=== PATIENT | female | born 1940 | race Caucasian/White ===

== ENCOUNTER 2017-07-12 17:16 | Emergency (ER) | payer MEDICARE ==
[~2017-07-12] VITALS: Ht 124.5 cm; Wt 68.0 kg
[~2017-07-12 17:16] MED LIST: ASPIRIN EC325 MG PO; ASPIRIN EC81 MG PO; CALCIUM 500 +1 EAC3 PO; CALCIUM500 MG PO; CALCIUM600 MG PO; GLUCOSAMINE &1 EAC1 PO; GLUCOSAMINE-MS1 EAC2 PO; HYDROMORPHONE HC4 MG PO; IRON325 M1 PO; MECLIZINE HCL25 MG PO; MIRALAX17 GM PO; MULTIVITAMINS1 EAC7 PO; NAPROXEN SODIU220 MG PO; NORCO 5-325 TA1 EACH PO; OMEGA 3 1,0001 EACH PO; OMEGA 3 FISH O1 EACH PO; PROAIR HFA8.5 GM INH; VITAMIN C1000 MG PO; VITAMIN C500 M1 PO; VITAMIN D350000 UNIT PO; XARELTO10 MG PO; [UNRECOGNIZED DRUG - OTHER] PO
[2017-07-12] MEDS ORDERED: PROCTOFOAM15 GM TOP (17:45)
== END 2017-07-12 17:50 | disposition home or self-care (01) ==
LOC: ED 17:16
DX: K64.9 Unspecified hemorrhoids (principal); M06.9 Rheumatoid arthritis, unspecified; Z88.5 Allergy status to narcotic agent; Z90.49 Acquired absence of other specified parts of digestive tract; Z90.710 Acquired absence of both cervix and uterus; Z98.890 Other specified postprocedural states; Z79.82 Long term (current) use of aspirin; Z79.899 Other long term (current) drug therapy
CPT/HCPCS: 99283

== ENCOUNTER 2017-07-17 07:24 | Day surgery (SDC) | payer MEDICARE ==
[~2017-07-17] VITALS: Ht 124.5 cm; Wt 68.0 kg
[~2017-07-17 07:24] MED LIST changes: +PROCTOFOAM15 GM TOP
[2017-07-17] MEDS ORDERED: SIMVASTATIN10 MG PO (08:08)
[2017-07-17] MEDS ORDERED: HYDROCORTISONE30 G1 PR (08:08)
--- NOTE | 2017-07-17 11:16 | NUR ---
07/17/17 1116 Nasra Magana 1107- PT ARRIVED TO PACU, AWKE AND MAINTAINING OWN AIRWAY. PT WAS ANSWERING QUESTIONS. VSS. PT O2 SAT 100%, O2 REMOVED.
--- NOTE | 2017-07-17 14:30 | OR ---
[facility] [address], [place] [address] Signed DATE OF PROCEDURE: 07/17/17 PREOPERATIVE DIAGNOSIS: Thrombosed right external hemorrhoid (3 o'clock). POSTOPERATIVE DIAGNOSIS: Thrombosed right external hemorrhoid (3 o'clock). PROCEDURE: Excision thrombosed external hemorrhoid x1. ESTIMATED BLOOD LOSS: None. INDICATIONS Yolanda is a 76-year-old female, who I have known for several years. She is known to have some internal hemorrhoid tissue from her previous colonoscopy along with an internal anal skin tag. She had woke up a few days prior to coming to my office with a large lump on the right side of her anus. She said it was extremely painful. She had been to her primary care provider. She was diagnosed with a thrombosed external hemorrhoid. She was given hydrocortisone cream and asked to see me in follow-up. She told me in the office it was no better and it was still quite painful. With our nurse in the room, we examined the anus and she had a [id number] thrombosed external hemorrhoid at the 3 o'clock position. It was a good 15 mm in diameter. I explained to Yolanda it was a little bit large for us to do in the office, plus her knees are quite bad and it was hard for her to be on our exam table. I gave her a booklet on hemorrhoids and we looked that very carefully. I circled the sections on the thrombosed external hemorrhoid a nd explained to her that a simple incision and drainage has a high recurrence rate. It is much better to excise the thrombosed hemorrhoid completely. Of course, we will leave the wound open to heal in secondarily. I also reviewed with her the concept of Benefiber in her diet to keep the stools soft after the hemorrhoid surgery. I also wrote down Balneol lotion that she can use around the anal skin immediately after the surgery and in the future as needed for comfort. She understands the surgery quite well. There is risk including but not limited to bleeding, infection, scarring, change in contour of the skin and recurrent hemorrhoids. She had expressed understanding and wished to proceed. PROCEDURE NOTE Yolanda had a saddle block placed by our nurse associate professor of archaeology, after which she was taken into our operating room and placed in a prone karine-knife position with appropriate padding and monitoring. She was given light IV sedation for her comfort. She was then prepped and draped in the usual sterile fashion. She was given preoperative antibiotics. After this, it was quite easy to identify the thrombosed hemorrhoid. It was just starting to break through the surface of the skin. We went ahead and excised the hemorrhoid carefully with electrocautery making sure to stay above her sphincter muscles. She also had a tiny anal skin tag in the posterior midline and we removed it with the help of electrocautery. We then injected local anesthetic on the right side of her anus for a Electronically Signed By: ALEXANDREA LOPEZ MD 07/17/17 1430 PATIENT NAME: YOLANDA MADRIGAL OPERATIVE REPORT DATE OF : 38 PHYSICIAN: ALEXANDREA LOPEZ MD REPORT #: [id number] REPORT IS CONFIDENTIAL AND NOT TO BE RELEASED WITHOUT AUTHORIZATION [address] [address] Signed field block. After this, Yolanda was rotated supine onto her hospital bed and taken into recovery room in stable condition. MD KIMBERLEE De La Cruz/Modl /[id number] cc: Dr. Jones Butler Electronically Signed By: ALEXANDREA LOPEZ MD 07/17/17 1430 PATIENT NAME: KAITLINYOLANDA Nava OPERATIVE REPORT DATE OF : 38 PHYSICIAN: ALEXANDREA LOPEZ MD REPORT #: [id number] REPORT IS CONFIDENTIAL AND NOT TO BE RELEASED WITHOUT AUTHORIZATION
--- NOTE | 2017-07-17 18:36 | EKG ---
[facility] [address] [facility] [place] [address] Signed Normal sinus rhythm Normal ECG No previous ECGs available Confirmed by SURESH ZARAGOZA MD ([id number]) on 07/17/2017 6:36:31 PM Electronically Signed By: SURESH ZARAGOZA MD 07/17/17 1836 PATIENT NAME: YOLANDA MADRIGAL Electrocardiogram DATE OF : 38 PHYSICIAN: SURESH ZARAGOZA MD REPORT #: [id number] REPORT IS CONFIDENTIAL AND NOT TO BE RELEASED WITHOUT AUTHORIZATION
== END 2017-07-17 12:57 | disposition home or self-care (01) ==
LOC: EDSTATUS 07:24 → DS 07:24
PROVIDERS: Colon & Rectal Surgery
PROC: 06BY0ZC Excision of Hemorrhoidal Plexus, Open Approach (ICD-10-PCS; principal; 2017-07-17 10:15)
DX: K64.5 Perianal venous thrombosis (principal); M17.0 Bilateral primary osteoarthritis of knee; Z90.49 Acquired absence of other specified parts of digestive tract; Z96.653 Presence of artificial knee joint, bilateral; Z98.890 Other specified postprocedural states; Z88.5 Allergy status to narcotic agent; Z88.2 Allergy status to sulfonamides; Z79.82 Long term (current) use of aspirin; Z79.899 Other long term (current) drug therapy
CPT/HCPCS: 00902; 80048; 85025; 88304; 93005; 93010; J0694; J1644; J2405; J2550; J2704; J3010

== ENCOUNTER 2017-09-13 10:53 | Emergency (ER) | payer MEDICARE ==
[~2017-09-13] VITALS: Ht 154.9 cm; Wt 72.6 kg
[~2017-09-13 10:53] MED LIST changes: +HYDROCORTISONE30 G1 PR; +SIMVASTATIN10 MG PO
[2017-09-13] MEDS ORDERED: NORCO 5-325 TA1 EACH PO (11:03)
== END 2017-09-13 11:08 | disposition home or self-care (01) ==
LOC: ED 10:53
DX: M25.562 Pain in left knee (principal); Z00.8 Encounter for other general examination

== ENCOUNTER 2017-11-01 09:50 | Emergency (ER) | payer MEDICARE ==
[~2017-11-01] VITALS: Ht 154.9 cm; Wt 72.6 kg
--- OUTSIDE RECORDS SUMMARY | 2017-11-01 10:51 | XMS | Clinical Summary ---
Demographics + + + | Address | [address] | | | [place] [address] | + + + | Home Phone | | + + + | Preferred Language | Unknown | + + + | Marital Status | Single | + + + | Shinto Affiliation | LDS | + + + | Race | White | + + + | Ethnic Group | Not or | + + + Author + + + | Author | [facility] | + + + | Organization | [facility] | + + + | Address | Unknown | + + + | Phone | Unavailable | + + + Care Team Providers + +------+-------+ | Care Green Tire Inspector Name | Role | Phone | + +------+-------+ | Jones Butler MD | PP | tel | + +------+-------+ Source Comments [facility] fully live on [facility] and [facility] Allergies Not on File Current Medications Not on file Active Problems Not on file Social History + +-------+ +--------+------+ | Tobacco Use | Types | Packs/Day | Years | Date | | | | | Used | | + +-------+ +--------+------+ | Never Assessed | | | | | + +-------+ +--------+------+ + + + | Sex Assigned at | Date Recorded | | | | + + + | Not on file | | + + + Plan of Treatment + + + + + | Health Maintenance | Due Date | Last Done | Comments | + + + + + | INFLUENZA VACCINE | | | | | (FLU SHOT) | 7 | | | + + + + + Results Not on filefrom Last 3 Months"
[2017-11-01] MEDS ORDERED: VOLTAREN100 GM TOP (11:06)
== END 2017-11-01 11:10 | disposition home or self-care (01) ==
LOC: ED 09:50
DX: M17.12 Unilateral primary osteoarthritis, left knee (principal); Z79.82 Long term (current) use of aspirin; Z88.5 Allergy status to narcotic agent; Z85.841 Personal history of malignant neoplasm of brain; M06.9 Rheumatoid arthritis, unspecified; Z96.651 Presence of right artificial knee joint; Z90.49 Acquired absence of other specified parts of digestive tract; Z90.710 Acquired absence of both cervix and uterus
CPT/HCPCS: 73560; 99283

== ENCOUNTER 2017-11-08 01:49 | Emergency (ER) | payer MEDICARE ==
[~2017-11-08] VITALS: Ht 154.9 cm; Wt 72.6 kg
[~2017-11-08 01:49] MED LIST changes: +VOLTAREN100 GM TOP
[2017-11-08] MEDS ORDERED: TYLOPHEN500 MG PO (02:28)
[2017-11-08] MEDS ORDERED: NORCO 5-325 TA1 EACH PO (05:51)
== END 2017-11-08 06:34 | disposition home or self-care (01) ==
LOC: ED 01:49
PROC: 0S9D3ZZ Drainage of Left Knee Joint, Percutaneous Approach (ICD-10-PCS; principal; 2017-11-08)
DX: M25.562 Pain in left knee (principal); S82.102D Unspecified fracture of upper end of left tibia, subsequent encounter for closed fracture with routine healing; Z85.841 Personal history of malignant neoplasm of brain; Z98.890 Other specified postprocedural states; Z90.49 Acquired absence of other specified parts of digestive tract; Z90.710 Acquired absence of both cervix and uterus; Z96.651 Presence of right artificial knee joint; Z88.5 Allergy status to narcotic agent; X58.XXXD Exposure to other specified factors, subsequent encounter
CPT/HCPCS: 20610; 85032; 87070; 87205; 89051; 99283

== ENCOUNTER 2020-12-03 15:19 | Emergency (ER) | payer MEDICARE ==
[~2020-12-03] VITALS: Ht 154.9 cm; Wt 72.6 kg
[~2020-12-03 15:19] MED LIST changes: +TYLOPHEN500 MG PO
--- NOTE | 2020-12-04 07:26 | EKG ---
[facility] [address] [facility] [place], [place] [address] Signed Normal sinus rhythm Normal ECG When compared with ECG of 17-JUL-2017 07:53, No significant change was found Confirmed by DORIAN FOSS MD ([id number]) on 12/04/2020 7:26:13 AM Electronically Signed By: DORIAN FOSS MD 12/04/20 0726 PATIENT NAME: YOLANDA MADRIGAL Electrocardiogram DATE OF : 38 PHYSICIAN: DORIAN FOSS MD REPORT #: [id number] REPORT IS CONFIDENTIAL AND NOT TO BE RELEASED WITHOUT AUTHORIZATION
== END 2020-12-03 19:40 | disposition home or self-care (01) ==
LOC: ED 15:19
DX: S09.90XA Unspecified injury of head, initial encounter (principal); E87.0 Hyperosmolality and hypernatremia; W18.30XA Fall on same level, unspecified, initial encounter; Z20.822 Contact with and (suspected) exposure to COVID-19
CPT/HCPCS: 70450; 80053; 81001; 82150; 82550; 83605; 83690; 83935; 84295; 85025; 86850; 86900; 86901; 93005; 93010; 99284-25; C9803; U0003

== ENCOUNTER 2021-03-08 14:56 | Emergency (ER) | payer MEDICARE ==
[~2021-03-08] VITALS: Ht 154.9 cm; Wt 72.6 kg
[2021-03-08] MEDS ORDERED: SIMVASTATIN10 MG PO (15:01)
[2021-03-08] MEDS ORDERED: HYDROCODON-ACE1 EA10 PO (18:50)
[2021-03-08] MEDS ORDERED: LIDODERM1 EACH TOP (18:50)
== END 2021-03-08 19:41 | disposition home or self-care (01) ==
LOC: ED 14:56
DX: M62.830 Muscle spasm of back (principal); Z88.5 Allergy status to narcotic agent
CPT/HCPCS: 99283; A9270